=== PATIENT | female | born 2000 | race Two or more races ===

== ENCOUNTER 2019-08-12 12:08 | Emergency (ER) | payer OTHER ==
[~2019-08-12] VITALS: Ht 165.1 cm; Wt 110.0 kg
[2019-08-12 12:21] VITALS: Ht 165.1 cm; Wt 110.0 kg
[2019-08-12] MEDS ORDERED: BC PILL (12:22)
[2019-08-12 12:43] LABS: BASOPHILS 0.2 % (0-2); EOSINOPHILS 0.2 % (0-7); HEMATOCRIT 39.1 % (36.0-48.0); HEMOGLOBIN 11.9 g/dL (12-16); IMMATURE GRANULOCYTES 0.2 % (0-5); LYMPHOCYTES 22.1 % (15-50); MCH 24.2 pg (26.0-34.0); MCHC 30.4 g/dL (31.0-37.0); MCV 79.5 fL (80.0-100.0); MONOCYTES 4.8 % (2-11); NEUTROPHILS 72.5 % (40-80); PLATELET COUNT 416 10x3/uL (130-400); RBC 4.92 10x6/uL (4.00-5.40); RDW 16.8 % (11.5-14.5); WBC 12.2 10x3/uL (4.8-10.8)
[2019-08-12 12:53] LABS: CALC OSMOLALITY 272 mosm/kg (275-300); CALCIUM 8.8 mg/dL (8.5-10.1); CARBON DIOXIDE 22.1 mmol/L (21.0-32.0); CHLORIDE - SERUM 102 mmol/L (98-107); CREATININE - SERUM 0.7 mg/dL (0.6-1.3); GLUCOSE 94 mg/dL (74-106); HCG URINE NEGATIVE (NEGATIVE); POTASSIUM - SERUM 3.9 mmol/L (3.5-5.1); SODIUM 137 mmol/L (136-145); UREA NITROGEN 10 mg/dL (7-18); eGFR NON AFRICAN AMERICAN > 90 mL/min (90-120)
[2019-08-12 13:02] LABS: BILIRUBIN NEGATIVE (NEGATIVE); GLUCOSE NEGATIVE (NEGATIVE); KETONE NEGATIVE (NEGATIVE); NITRITE NEGATIVE (NEGATIVE); SPECIFIC GRAVITY 1.015 (1.005-1.020); UROBILINOGEN NORMAL (NORMAL)
[2019-08-12 13:04] LABS: BACTERIA MODERATE /hpf (NEGATIVE); EPITHELIAL CELLS OCC /hpf (0-5); RED CELLS - URINE >50 /hpf (0-5); WHITE CELLS - URINE 0-5 /hpf (NEGATIVE)
[2019-08-12 13:07] LABS: ALBUMIN 3.5 g/dL (3.4-5.0); ALKALINE PHOSPHATASE 69 U/L (30-120); ALT (SGPT) 19 U/L (10-68); AMYLASE - SERUM 26 U/L (25-115); BILIRUBIN - TOTAL 0.18 mg/dL (0.2-1.3); LIPASE 89 U/L (73-393); PROTEIN - SERUM 8.4 g/dL (6.4-8.2)
[2019-08-12 13:08] LABS: TROPONIN-I < 0.017 ng/mL (0.000-0.060)
[2019-08-12] MEDS ORDERED: MACROBID100 MG PO (16:07)
[2019-08-12] MEDS ORDERED: KEFLEX500 MG PO (16:07)
[2019-08-12 16:32] VITALS: BP 148/88
== END 2019-08-12 16:33 | disposition home or self-care (01) ==
LOC: D.ER 12:08
PROVIDERS: Family Medicine
DX: R10.9 Unspecified abdominal pain (principal); N93.8 Other specified abnormal uterine and vaginal bleeding; N39.0 Urinary tract infection, site not specified